=== PATIENT | female | born 1940 | race Hispanic/Latino ===

== ENCOUNTER → 2021-11-18 | Outpatient (CLI) | payer OTHER | END | disposition home or self-care (01) | LOC: RAH 14:04 | PROVIDERS: ATTEND Internal Medicine Cardiovascular Disease | DX: Z13.6 Encounter for screening for cardiovascular disorders (principal); R07.9 Chest pain, unspecified | CPT/HCPCS: 75571 ==

== ENCOUNTER 2022-12-29 18:36 | Emergency (ER) | payer OTHER ==
[~2022-12-29] VITALS: Ht 154.9 cm; Wt 60.8 kg
[2022-12-29] MEDS ORDERED: DICYCLOMINE HCL 10 MG/5 ML ML PO SCH (21:30)
[2022-12-29] MEDS ORDERED: LIDOCAINE HCL 2% VISCOUS 15 ML UDCUP PO ONE (21:30)
[2022-12-29] MEDS ORDERED: MAG/ALUM/SIMETH 30 ML UDCUP PO ONE (21:30)
[2022-12-29 22:06] LABS: BASOPHILS % (AUTO) 0.6 % (0.0-5.0); EOSINOPHILS % (AUTO) 3.1 % (0.0-8.0); HEMATOCRIT 42.9 % (36-48); MEAN CORPUSCULAR HEMOGLOBIN 29.1 pg (27.0-33.0); MEAN CORPUSCULAR HGB CONC 31.2 g/dL (32.0-36.0); MEAN CORPUSCULAR VOLUME 93.1 fL (79-99); MONOCYTES % (AUTO) 7.5 % (3.0-13.0); NEUTROPHILS % (AUTO) 49.5 % (40.0-77.0); PLATELET COUNT (AUTO) 202 K/uL (130-400); RED BLOOD CELL COUNT(AUTO) 4.61 MIL/uL (4.00-5.50); RED CELL DISTRIBUTION WIDTH 13.5 % (11.0-15.5); WHITE BLOOD COUNT (AUTO) 6.5 K/uL (4.8-10.8)
[2022-12-29 22:18] LABS: APPEARANCE,URINE CLEAR (CLEAR); BILIRUBIN,URINE NEGATIVE (NEGATIVE); COLOR,URINE LIGHT-YELLOW (YELLOW); GLUCOSE, URINE (UA) NEGATIVE (NEGATIVE); KETONES,URINE NEGATIVE (NEGATIVE); LEUKOCYTE ESTERASE ,URINE NEGATIVE Leu/uL (NEGATIVE); NITRATE,URINE NEGATIVE (NEGATIVE); OCCULT BLOOD,URINE NEGATIVE (NEGATIVE); PROTEIN,URINE NEGATIVE (NEGATIVE); UROBILINOGEN,URINE 0.2 mg/dL (0.2-1.0)
[2022-12-29 22:18] LABS: CREATININE 0.8 mg/dL (0.5-1.5); POTASSIUM 4.3 mmol/L (3.5-5.1)
[2022-12-29 22:32] LABS: ALBUMIN 3.7 g/dL (3.5-5.0); TOTAL PROTEIN, SERUM 7.9 g/dL (6.0-8.3)
[2022-12-29] MEDS ORDERED: SUCR1TAB28 PO (23:09)
[2022-12-29 23:21] VITALS: BP 154/72; PULSE 82; RESP 16; O2SAT 98
== END 2022-12-29 23:20 | disposition home or self-care (01) ==
LOC: EDH 18:36
DX: K29.50 Unspecified chronic gastritis without bleeding (principal); E78.00 Pure hypercholesterolemia, unspecified; I10 Essential (primary) hypertension; K21.9 Gastro-esophageal reflux disease without esophagitis; Z88.0 Allergy status to penicillin; Z90.49 Acquired absence of other specified parts of digestive tract
CPT/HCPCS: 36415; 80053; 81003; 83690; 84484; 85025; 93005

== ENCOUNTER → 2023-02-15 | Outpatient (CLI) | payer OTHER ==
[~2023-02-15] MED LIST: SUCR1TAB28 PO
== END | disposition home or self-care (01) ==
LOC: RAH 07:20
PROVIDERS: ATTEND Internal Medicine Gastroenterology
DX: R14.0 Abdominal distension (gaseous) (principal); R11.2 Nausea with vomiting, unspecified; R68.81 Early satiety
CPT/HCPCS: 78264; A9541